=== PATIENT | female | born 1980 | race Caucasian/White ===

== ENCOUNTER 2017-12-31 22:10 | Emergency (ER) | payer SELFPAY ==
[2017-12-31 22:10] VITALS: BMI 19.6
[2017-12-31 22:18] VITALS: BP 107/61; PULSE 79; RESP 18; TEMP 98; O2SAT 99
--- NOTE | 2017-12-31 22:37 | C.PDOC ---
History Of Present Illness 37 year old female presents to the ED for evaluation of a rash which started yesterday. Patient describes an itching and burning which started on left breast and is spreading towards axilla. She denies fever, chills, tongue/lip swelling, shortness of breath, contact with new foods/products. Time Seen by Provider: 12/31/17 22:30 Chief Complaint (Nursing): Abnormal Skin Integrity History Per: Patient History/Exam Limitations: no limitations Onset/Duration Of Symptoms: Hrs Current Symptoms Are (Timing): Still Present Quality Of Symptoms: Itching, Other (burning ) Additional History Per: Patient Past Medical History Reviewed: Historical Data, Nursing Documentation, Vital Signs Vital Signs: Last Vital Signs Temp 98 F 12/31/17 22:14 Pulse 79 12/31/17 22:14 Resp 18 12/31/17 22:14 BP 107/61 12/31/17 22:14 Pulse Ox 99 12/31/17 23:42 - Medical History PMH: No Chronic Diseases Surgical History: No Surg Hx - [facility] Procedures DIVISION OF FEMALE PERINEUM, EXTERNAL APPROACH (09/07/15) EXTRACTION OF PRODUCTS OF CONCEPTION, VACUUM, VIA OPENING (09/07/15) INTRODUCE OF OTH THERAP SUBST INTO FEM REPROD, VIA OPENING (09/07/15) REPAIR PERINEUM MUSCLE, OPEN APPROACH (09/07/15) Family History: States: Unknown Family Hx - Social History Hx Tobacco Use: No Hx Alcohol Use: No Hx Substance Use: No - Immunization History Hx Tetanus Toxoid Vaccination: Yes Hx Influenza Vaccination: Yes Hx Pneumococcal Vaccination: No Review Of Systems Respiratory: Negative for: Shortness of Breath Skin: Positive for: Rash (left breast, spreading towards axilla ) Physical Exam - Physical Exam Appears: Non-toxic, No Acute Distress Skin: Warm, Dry, Other (erythematous papules and vesicles in clusters to left chest wall by breast and radiates laterally towards axilla) Head: Atraumatic, Normacephalic Eye(s): bilateral: Normal Inspection Oral Mucosa: Moist Tongue: Normal Appearing, No Swelling Lips: Normal Appearing, No Swelling Neck: Supple Chest: Symmetrical, No Deformity, No Tenderness Cardiovascular: Rhythm Regular, No Murmur Respiratory: Normal Breath Sounds, No Rales, No Rhonchi, No Wheezing Extremity: Normal ROM, Capillary Refill (less than 2 seconds ) Neurological/Psych: Oriented x3, Normal Speech, Normal Cognition ED Course And Treatment O2 Sat by Pulse Oximetry: 99 (on RA) Pulse Ox Interpretation: Normal Medical Decision Making Medical Decision Making: Impression : Zoster Plan: Discharge home with acyclovir and recommend antihistamine and antiviral medication Disposition Counseled Patient/Family Regarding: Diagnosis, Need For Followup, Rx Given - Disposition Referrals: Non [facility] Provider, [Primary Care Provider] - Disposition: HOME/ ROUTINE Disposition Time: 22:39 Condition: STABLE Additional Instructions: You have shingles rash Take antiviral medication Acyclovir 5 times a day Take Motrin 400-600mg for any pain Take Tylenol 500mg for any pain Can take Benadryl 1-2 tabs every 6 hours for itching Prescriptions: Acyclovir [Zovirax] 800 mg PO 5XD #35 tab Instructions: Shingles (DC) Forms: [facility] ([place]ayan) - POA Present On Arrival: None - Clinical Impression Clinical Impression: Herpes zoster - 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 - Scribe Statement The provider has reviewed the documentation as recorded by the Scribe (Mariela Bradley) All medical record entries made by the Scribe were at my direction and personally dictated by me. I have reviewed the chart and agree that the record accurately reflects my personal performance of the history, physical exam, medical decision making, and the department course for this patient. I have also personally directed, reviewed, and agree with the discharge instructions and disposition.
== END 2017-12-31 23:13 | disposition home or self-care (01) ==
LOC: SUPCPDRO 22:10 → C.ER 22:10
DX: B02.9 Zoster without complications (principal)